=== PATIENT | female | born 1985 | race Caucasian/White ===

== ENCOUNTER → 2023-02-23 | Emergency (ER) | payer OTHER ==
[~2023-02-23] MED LIST: KETOROLAC 30 MG/ML INJ ONE; NACHLORIDE 0.45% 1,000 ML IV ONE
[2023-02-23 11:32] LABS: Absolute Lymphocytes (CBC) 1.8 K/uL (0.7-4.9); Hematocrit 40.1 % (36.0-45.0); Lymphocytes % 32.5 % (15.3-44.8); MCV 87.9 fL (80-100); MPV 7.4 fL (7.6-11.3); Platelets 210 thou/uL (152-406); RBC Red Blood Cell Count 4.56 M/uL (3.86-4.86)
[2023-02-23 11:36] LABS: Specific Gravity 1.017 (1.005-1.030)
[2023-02-23 11:39] LABS: Specific Gravity 1.017 (1.005-1.030); Urine Bacteria None Seen /HPF (<20); Urine Bilirubin NEGATIVE (Negative); Urine Blood Negative (Negative); Urine Clarity Turbid (Clear); Urine Color Light-Yellow (Yellow); Urine Glucose NEGATIVE (Negative); Urine Mucus Slight /HPF (None Seen); Urine Protein NEGATIVE (Negative); Urine RBC <5 /HPF (None Seen); Urine Urobilinogen Normal (Normal)
[2023-02-23 11:49] LABS: Albumin 3.2 g/dL (3.4-5.0); Bilirubin Total 0.3 mg/dL (0.2-1.0); Potassium 3.7 mEq/L (3.5-5.1); Protein, Total 7.2 g/dL (6.4-8.2)
--- NOTE | 2023-02-23 12:28 | RAD REPORT ---
EXAM DESCRIPTION: CT - Abdomen Pelvis Wo Contrast - 02/23/2023 11:53 am CLINICAL HISTORY: Abdominal pain left flank pain COMPARISON: None TECHNIQUE: Computed axial tomography of the abdomen and pelvis was obtained. IV and oral contrast we re not requested. All CT scans are performed using dose optimization technique as appropriate and may include automated exposure control or mA/KV adjustment according to patient size. FINDINGS: The evaluation of solid organs, vessels and bowel is limited secondary to the lack of con trast administration. The liver, spleen, pancreas, adrenals and kidneys appear grossly normal. Cholelithiasis. Gallbladder wall not thickened No adnexal mass. There is no evidence of diverticulitis. Small umbilical hernia IMPRESSION: Cholelithiasis
--- NOTE | 2023-02-23 12:39 | EDPHYS ---
Physician Documentation [facility] Name: August Age: 37 yrs Sex: Female : 1985 Arrival Date: 02/23/2023 Time: 10:33 Bed 14 Private MD: ED Physician Schuyler Lehman HPI: 02/23 10:53 This 37 yrs old Female presents to ER via Ambulatory with complaints of Low Back Pain, sp3 Abdominal Pain, Pain With Urination. 10:53 37-year-old female with no known past medical history no prior history of kidney stones sp3 now presents to the ED with left-sided flank pain, mild dysuria without gross hematuria. Patient is concerned about bladder infection versus kidney stone. Symptoms been going on for 1 to 2 days and pain is worse at the end of urination with spasms. Review of systems negative for fever, headache, URI symptoms, chest pain, shortness of breath, rash, bleeding, or any other signs or symptoms at this time. She denies VP OF TECHNOLOGY symptoms as well.. 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 - Social history:: Smoking status: Patient denies any tobacco usage or history of. ROS: 10:55 Constitutional: Negative for fever, chills, and weight loss, Eyes: Negative for injury, sp3 pain, redness, and discharge, ENT: Negative for injury, pain, and discharge, Neck: Negative for injury, pain, and swelling, Cardiovascular: Negative for chest pain, palpitations, and edema, Respiratory: Negative for shortness of breath, cough, wheezing, and pleuritic chest pain, MS/Extremity: Negative for injury and deformity, Skin: Negative for injury, rash, and discoloration, Neuro: Negative for headache, weakness, numbness, tingling, and seizure, Psych: Negative for depression, anxiety, suicide ideation, homicidal ideation, and hallucinations, Allergy/Immunology: Negative for hives, rash, and allergies, Endocrine: Negative for neck swelling, polydipsia, polyuria, polyphagia, and marked weight changes, Hematologic/Lymphatic: Negative for swollen nodes, abnormal bleeding, and unusual bruising, 10:55 All other systems are negative, Exam: 10:56 Constitutional: This is a well developed, well nourished patient who is awake, alert, sp3 and in no acute distress. Head/Face: Normocephalic, atraumatic. Eyes: Pupils equal round and reactive to light, extra-ocular motions intact. Lids and lashes normal. Conjunctiva and sclera are non-icteric and not injected. Cornea within normal limits. Periorbital areas with no swelling, redness, or edema. ENT: Nares patent. No nasal discharge, no septal abnormalities noted. External auditory canals are clear. Oropharynx with no redness, swelling, or masses, exudates, or evidence of obstruction, uvula midline. Mucous membranes moist. Neck: Trachea midline, no thyromegaly or masses palpated, and no cervical lymphadenopathy. Supple, full range of motion without nuchal rigidity, or vertebral point tenderness. No Meningismus. Chest/axilla: Normal chest wall appearance and motion. Nontender with no deformity. No lesions are appreciated. Cardiovascular: Regular rate and rhythm with a normal S1 and S2. No gallops, murmurs, or rubs. Normal PMI, no JVD. No pulse deficits. Respiratory: Lungs have equal breath sounds bilaterally, clear to auscultation and percussion. No rales, rhonchi or wheezes noted. No increased work of breathing, no retractions or nasal flaring. Skin: Warm, dry with normal turgor. Normal color with no rashes, no lesions, and no evidence of cellulitis. MS/ Extremity: Pulses equal, no cyanosis. Neurovascular intact. Full, normal range of motion. Neuro: Awake and alert, GCS 15, oriented to person, place, time, and situation. Cranial nerves II-XII grossly intact. Motor strength 5/5 in all extremities. Sensory grossly intact. Cerebellar exam normal. Normal gait. Psych: Awake, alert, with orientation to person, place and time. Behavior, mood, and affect are within normal limits. 10:56 Abdomen/GI: Left knee tenderness noted., Vital Signs: 10:44 BP 143 / 90; Pulse 93; Resp 18 S; Temp 98.3(O); Pulse Ox 98% on R/A; Weight 145.15 kg aa5 (R); Height 5 ft. 3 in. (R); 12:34 BP 134 / 69; Pulse 71; Resp 17; Pulse Ox 96% on R/A; kd3 10:44 Body Mass Index 56.68 (145.15 kg, 160.02 cm) aa5 MDM: 10:50 Patient medically screened. sp3 10:56 Data reviewed: vital signs, nurses notes, lab test result(s), radiologic studies. ED sp3 course: 37-year-old female with left-sided flank pain and mild dysuria. Differential diagnosis includes UTI/pyelonephritis spectrum, nephrolithiasis/ureterolithiasis kidney stone spectrum, and musculoskeletal pain. I am not highly suspicious for vascular pathology including aortic, GI pathology, or VP OF TECHNOLOGY pathology at this time. Workup will include laboratory values, urine analysis and CT scan of the abdomen pelvis noncontrast and neck kidney stone protocol. Disposition pending workup and patient course. Patient will receive ketorolac 30 mg IV and normal saline 1 L IV for symptomatic control.. 12:38 ED course: Workup is negative. We will safely discharged home at this time with likely sp3 MSK related symptoms.. 02/23 10:50 Order name: UAM; Complete Time: 11:55 sp3 02/23 10:50 Order name: Test, Urine; Complete Time: 11:55 sp3 02/23 10:53 Order name: CBC with Diff; Complete Time: 11:55 sp3 02/23 10:53 Order name: CMP; Complete Time: 11:55 sp3 02/23 10:53 Order name: Lipase; Complete Time: 11:55 sp3 02/23 10:53 Order name: CT Abd/Pelvis - Without Contrast; Complete Time: 12:30 sp3 02/23 10:53 Order name: IV Saline Lock; Complete Time: 11:25 sp3 02/23 10:53 Order name: Labs collected and sent; Complete Time: 11:24 sp3 Administered Medications: 11:24 Drug: TORadol - Ketorolac IVP 30 mg IVP once Route: IVP; Site: right antecubital; kd3 12:53 Follow up: Response: No adverse reaction; Pain is decreased kd3 11:24 Drug: NS IV 0.45 % 1000 ml IV at bolus once Route: IV; Rate: bolus; Site: right kd3 antecubital; 12:53 Follow up: IV Status: Completed infusion; IV Intake: 200ml kd3 Disposition Summary: 02/23/23 12:39 Discharge Ordered Notes: Location: Home sp3 Condition: Stable sp3 Diagnosis - Musculoskeletal back pain, flank pain sp3 Followup: sp3 - With: Private Physician - When: Upon discharge from the Emergency Department - Reason: Continuance of care Discharge Instructions: - Discharge Summary Sheet sp3 - Flank Pain, Adult sp3 Forms: - Medication Reconciliation Form sp3 - Thank You Letter sp3 - Antibiotic Education sp3 - Prescription Opioid Use sp3 - Patient Portal Instructions sp3 - Leadership Thank You Letter sp3 - Work release form kd3 Signatures: Dispatcher [employer] EDRachel Salas RN RN aa5 Schuyler Lehman MD MD sp3 Emily Santos RN RN kd3 Corrections: (The following items were deleted from the chart) 10:45 10:44 Allergies: No Known Allergies; rere aa5
--- NOTE | 2023-02-23 12:39 | ER ---
Nurse's Notes [facility] [place] Name: August Angelica Age: 37 yrs Sex: Female : 1985 Arrival Date: 02/23/2023 Time: 10:33 Bed 14 Private MD: Diagnosis: Musculoskeletal back pain, flank pain Presentation: 02/23 10:44 Chief complaint: Patient states: left low back pain since yesterday. Pt denies burning aa5 with urination but reports urinary frequency. Coronavirus screen: At this time, the client does not indicate any symptoms associated with coronavirus-19. Ebola Screen: Patient denies travel to an Ebola-affected area in the 21 days before illness onset. Initial Sepsis Screen: Does the patient meet any 2 criteria? No. Patient's initial sepsis screen is negative. Does the patient have a suspected source of infection? No. Patient's initial sepsis screen is negative. Risk Assessment: Do you want to hurt yourself or someone else? Patient reports no desire to harm self or others. Onset of symptoms was February 2023. 10:44 Method Of Arrival: Ambulatory aa5 10:44 Acuity: RAE 3 aa5 Triage Assessment: 12:34 General: Appears in no apparent distress. Behavior is calm, cooperative. Pain: kd3 Complains of pain in back. GI: Abdomen is non-distended. 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 - Social history:: Smoking status: Patient denies any tobacco usage or history of. Screenin:34 [facility] ED Fall Risk Assessment (Adult) History of falling in the last 3 months, kd3 including since admission No falls in past 3 months (0 pts) Confusion or Disorientation No (0 pts) Intoxicated or Sedated No (0 pts) Impaired Gait No (0 pts) Mobility Assist Device Used No (0 pt) Altered Elimination No (0 pt) Score/Fall Risk Level 0 - 2 = Low Risk Oriented to surroundings. Abuse screen: Denies threats or abuse. Denies injuries from another. Nutritional screening: No deficits noted. Tuberculosis screening: No symptoms or risk factors identified. Assessment: 11:25 General: Pt seen sitting in the stretcher, respirations are even and unlabored, skin is kd3 warm and dry and normal in color, pt is alert and oriented x 4. Pt encouraged to attempt to give a urine sample. Pt was independently ambulatory to the restroom, gait is steady. Urine sample collected via clean catch, Iv access obtained in the right A/C, blood work collected and sent to the lab. Fluids are running. Pt reports having her tubes tied and denies possibility of . Pain medications are administered. Pt placed on continuous monitoring, side rail up x 1, call light in reach. No new requests at this time. . 12:35 GI: Bowel sounds present X 4 quads. Abd is soft X 4 quads. kd3 Vital Signs: 10:44 BP 143 / 90; Pulse 93; Resp 18 S; Temp 98.3(O); Pulse Ox 98% on R/A; Weight 145.15 kg aa5 (R); Height 5 ft. 3 in. (R); 12:34 BP 134 / 69; Pulse 71; Resp 17; Pulse Ox 96% on R/A; kd3 10:44 Body Mass Index 56.68 (145.15 kg, 160.02 cm) aa5 ED Course: 10:38 Patient arrived in ED. mg5 10:39 Schuyler Lehman MD is Attending Physician. sp3 10:44 Triage completed. aa5 10:44 Arm band placed on. aa5 11:24 Emily Santos, RN is Primary Nurse. kd3 11:24 CBC with Diff Sent. kd3 11:24 CMP Sent. kd3 11:24 Lipase Sent. kd3 11:24 Test, Urine Sent. kd3 11:24 UAM Sent. kd3 11:25 Inserted saline lock: 20 gauge in right antecubital area, using aseptic technique. kd3 Blood collected. 11:55 CT Abd/Pelvis - Without Contrast In Process Unspecified. EDMS 12:35 Patient has correct armband on for positive identification. Provided Education on: kd3 fluids . 12:35 No provider procedures requiring assistance completed. kd3 12:52 IV discontinued, intact, bleeding controlled, No redness/swelling at site. Pressure kd3 dressing applied. Administered Medications: 11:24 Drug: TORadol - Ketorolac IVP 30 mg IVP once Route: IVP; Site: right antecubital; kd3 12:53 Follow up: Response: No adverse reaction; Pain is decreased kd3 11:24 Drug: NS IV 0.45 % 1000 ml IV at bolus once Route: IV; Rate: bolus; Site: right kd3 antecubital; 12:53 Follow up: IV Status: Completed infusion; IV Intake: 200ml kd3 Medication: 12:35 VIS not applicable for this client. kd3 Intake: 12:53 IV: 200ml; Total: 200ml. kd3 Outcome: 12:39 Discharge ordered by . sp3 12:52 Discharged to home ambulatory, kd3 12:52 Condition: stable 12:52 Discharge instructions given to patient, Instructed on discharge instructions, follow up and referral plans. Demonstrated understanding of instructions, follow-up care, 12:53 Patient left the ED. kd3 Signatures: Dispatcher [employer] EDVT Rachel Xie RN RN aa5 Schuyler Lehman MD MD sp3 Emily Santos RN RN kd3 Lawanda Portillo mg5 Corrections: (The following items were deleted from the chart) 10:45 10:44 Allergies: No Known Allergies; aa5 aa5
[2023-02-23 15:19] VITALS: BP 134/69; TEMP 98.3; O2SAT 96
== END ==
LOC: ER 10:33
DX: R10.32 Left lower quadrant pain (principal); M79.18 Myalgia, other site; M54.50 Low back pain, unspecified; Z88.1 Allergy status to other antibiotic agents; Z91.048 Other nonmedicinal substance allergy status
CPT/HCPCS: 36415; 74176; 80053; 81001; 81025; 83690; 85025; 96361; 96374; 99284

== ENCOUNTER 2024-02-04 07:57 | Emergency (ER) | payer OTHER ==
[2024-02-04 08:33] LABS: Absolute Lymphocytes (CBC) 0.9 K/uL (0.7-4.9); Absolute Monocytes 0.3 K/uL (0.1-1.3); Absolute Neutrophil 5.2 K/uL (1.8-8.0); Basophils % 0.3 % (0-1.3); Eosinophils % 0.3 % (0-4.4); Hematocrit 43.2 % (36.0-45.0); Hemoglobin 14.5 g/dL (12.0-15.0); Lymphocytes % 14.3 % (15.3-44.8); MCH 29.9 pg (27.0-35.0); MCHC 33.6 g/dL (32.0-36.0); MCV 89.1 fL (80-100); MPV 7.6 fL (7.6-11.3); Monocytes % 4.9 % (3.3-12.3); Neutrophils % 80.2 % (41.7-73.7); Nucleated Red Blood Cells % 0.1 % (0-0); Platelets 195 thou/uL (152-406); RBC Red Blood Cell Count 4.85 M/uL (3.86-4.86); Red Cell Distribution Width 14.4 % (12.1-15.2)
--- NOTE | 2024-02-04 08:46 | RAD REPORT ---
EXAM: Right upper quadrant ultrasound. CLINICAL HISTORY: ABD PAIN COMPARISON: None. FINDINGS: Gallbladder: Cholelithiasis. Bile ducts: No intrahepatic or extrahepatic biliary dilatation. Common bile duct measures 4 mm. Limited imaging of the liver shows no concerning finding. IMPRESSION: Cholelithiasis.
[2024-02-04 08:50] LABS: Albumin 3.5 g/dL (3.4-5.0); Albumin/Globulin Ratio 0.9 (1.1-1.8); Anion Gap 7.6 mEq/L (5.0-15.0); Bilirubin Total 0.7 mg/dL (0.2-1.0); Potassium 3.6 mEq/L (3.5-5.1); Protein, Total 7.5 g/dL (6.4-8.2)
[2024-02-04] MEDS ORDERED: FAMOTIDINE 20 MG/2 ML VIAL IV ONE (08:55)
[2024-02-04] MEDS ORDERED: NA CHLORIDE 0.9% 1,000 ML ONE (08:55)
[2024-02-04] MEDS ORDERED: ONDANSETRON 4 MG/2 ML VIAL ONE (08:55)
[2024-02-04 09:10] LABS: Specific Gravity 1.028 (1.005-1.030)
[2024-02-04 09:14] LABS: Specific Gravity 1.028 (1.005-1.030); Sqamous Epithelial <5 /HPF (None Seen); Urine Bacteria None Seen /HPF (<20); Urine Bilirubin NEGATIVE (Negative); Urine Blood Negative (Negative); Urine Clarity Turbid (Clear); Urine Color Yellow (Yellow); Urine Culture Reflex Order NOT NEEDED; Urine Glucose NEGATIVE (Negative); Urine Ketones NEGATIVE (Negative); Urine Microscopic Reflex YN ORDER UMIC; Urine Mucus 1+ /HPF (None Seen); Urine Nitrite NEGATIVE (Negative); Urine Protein TRACE (Negative); Urine RBC <5 /HPF (None Seen); Urine Urobilinogen Normal (Normal); Urine WBC <5 /HPF (<5)
--- NOTE | 2024-02-04 09:48 | RAD REPORT ---
EXAMINATION: CT ABDOMEN AND PELVIS WITHOUT CONTRAST CLINICAL INDICATION: ABD PAIN TECHNIQUE: CT abdomen and pelvis was performed, without IV contrast, as per department protocol. Axia l, sagittal and coronal reconstructions were obtained. One or more of the following dose reduction techniques were used: Automated exposure control, adjustment of the mA and kV according to the patien t size, and iterative reconstruction. Unless otherwise specified, incidental findings do not require dedicated imaging follow-up. COMPARISON: 02/23/2023 FINDINGS: The lack of intravenous contrast limits the sensitivity of this exam for evaluation of solid visceral organs, vascular structures, and retroperitoneum. LOWER CHEST: The visualized lung bases are clear. LIVER:Normal in size and contour. No focal lesion. Cholelithiasis. SPLEEN: Normal size. No focal lesion. PANCREAS: No mass, ductal dilation, or irasema-pancreatic fluid. ADRENALS: Normal; no mass. KIDNEYS AND URETERS: Normal size and contour. No hydronephrosis. URINARY BLADDER: Normal contour. GASTROINTESTINAL TRACT: No evidence of bowel obstruction, significant free fluid, free air or abscess . APPENDIX: Appendix not visualized, but no inflammatory changes in region of appendix. LYMPH NODES: No lymphadenopathy. MUSCULOSKELETAL: No acute or suspicious osseous abnormality. ADDITIONAL FINDINGS: None. IMPRESSION: No acute or concerning abnormalities in the abdomen or pelvis, with evaluation limited by lack of IV contrast. Cholelithiasis.
--- NOTE | 2024-02-04 10:34 | ER ---
Nurse's Notes [facility] [place] Name: Josi Dominguez Age: 38 yrs Sex: Female : 1985 Arrival Date: 02/04/2024 Time: 07:57 Bed 14 Private MD: Diagnosis: Other cholelithiasis without obstruction;Epigastric abdominal tenderness Presentation: 02/03 08:09 Chief complaint: Patient states: woke up with upper abd pain , under her ribs , + iw vomiting. Coronavirus screen: At this time, the client does not indicate any symptoms associated with coronavirus-19. Ebola Screen: No symptoms or risks identified at this time. Initial Sepsis Screen: Does the patient meet any 2 criteria? No. Patient's initial sepsis screen is negative. Does the patient have a suspected source of infection? No. Patient's initial sepsis screen is negative. Risk Assessment: Do you want to hurt yourself or someone else? Patient reports no desire to harm self or others. Onset of symptoms was February 04, 2024. 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 - Infectious Disease History:: Denies. - Social history:: Smoking status: Patient denies any tobacco usage or history of. - Family history:: not pertinent. Screenin:10 [facility] ED Fall Risk Assessment (Adult) History of falling in the last 3 months, ap3 including since admission No falls in past 3 months (0 pts) Confusion or Disorientation No (0 pts) Intoxicated or Sedated No (0 pts) Impaired Gait No (0 pts) Mobility Assist Device Used No (0 pt) Altered Elimination No (0 pt) Score/Fall Risk Level 0 - 2 = Low Risk Oriented to surroundings, Maintained a safe environment, Educated pt \T\ family on fall prevention, incl call for assistance when getting out of bed, Assessed \T\ reinforced patient's understanding of fall precautions, Hourly rounding (assess needs \T\ fall precautionary measures) done, Used ambulatory aids as needed (educated on \T\ assisted with), Used gait belt as appropriate. Abuse screen: Denies threats or abuse. Nutritional screening: No deficits noted. Tuberculosis screening: No symptoms or risk factors identified. Assessment: 10:10 General: Appears in no apparent distress. Behavior is calm, cooperative, appropriate ap3 for age. Pain: Complains of pain in abdomen Pain began this morning. Neuro: Level of Consciousness is awake, alert, obeys commands, Oriented to person, place, time, situation, Appropriate for age. Cardiovascular: Patient's skin is warm and dry. Respiratory: Airway is patent Respiratory effort is even, unlabored, Respiratory pattern is regular, symmetrical. GI: Reports lower abdominal pain, upper abdominal pain. Vital Signs: 08:09 BP 146 / 86; Pulse 88; Resp 16; Temp 97.1; Pulse Ox 98% on R/A; Weight 128.82 kg; iw Height 5 ft. 2 in. ; Pain 7/10; 10:09 BP 126 / 58; Pulse 68; Resp 18; Pulse Ox 98% on R/A; ap3 08:09 Body Mass Index 51.94 (128.82 kg, 157.48 cm) iw 08:09 Pain Scale: Adult iw ED Course: 07:59 Patient arrived in ED. ra3 08:00 Jeremiah Fabian MD is Attending Physician. kaley 08:10 Triage completed. iw 08:10 Arm band placed on. iw 08:25 CBC with Diff Sent. bc6 08:25 CMP Sent. bc6 08:25 Lipase Sent. bc6 08:25 Initial lab(s) drawn, by va, sent to lab. Inserted saline lock: 20 gauge in right bc6 antecubital area, using aseptic technique. Blood collected. Flushed with 10 mL NS. 08:41 Ines Gómez, KILLIAN is Primary Nurse. ap3 08:42 Abdomen Limited US In Process Unspecified. EDMS 09:43 Abdomen In Process Unspecified. EDMS 10:11 No provider procedures requiring assistance completed. ap3 10:33 Leonard Arreola MD is Referral Physician. kaley 11:08 Provided Education on: discharge instructions. ap3 11:08 Patient has correct armband on for positive identification. ap3 11:08 IV discontinued, intact, bleeding controlled, No redness/swelling at site. Pressure ap3 dressing applied. Administered Medications: 09:06 Drug: Famotidine IVP 20 mg IVP once; dilute with 10 mL 0.9% NaCl; give over 2 minutes bp Route: IVP; Site: right antecubital; 11:08 Follow up: Response: No adverse reaction ap3 09:06 Drug: Ondansetron IVP 4 mg IVP once; over 2 minutes Route: IVP; Site: right antecubital;bp 11:09 Follow up: Response: No adverse reaction; Nausea is decreased ap3 09:06 Drug: NS 0.9% IV 1000 ml IV at 1 bolus Per protocol; to be given as a bolus over 60 bp minutes Route: IV; Rate: 1 bolus; Site: right antecubital; 11:08 Follow up: IV Status: Completed infusion; IV Intake: 1000ml ap3 Medication: 10:11 VIS not applicable for this client. ap3 Intake: 11:08 IV: 1000ml; Total: 1000ml. ap3 Outcome: 10:34 Discharge ordered by MD. roche 11:07 Discharged to home ambulatory, with family, ap3 11:07 Condition: good 11:07 Discharge instructions given to patient, Instructed on discharge instructions, follow up and referral plans. medication usage, Demonstrated understanding of instructions, follow-up care, medications, Prescriptions given X 3, 11:09 Patient left the ED. ap3 Signatures: Dispatcher [employer] EDNC Jeremiah Fabian MD MD cha Williams, Irene, RN RN iw Peltier, Brian, RN RN bp Prokisch, Amanda, RN RN ap3 Latisha Castro Ruby ra3
--- NOTE | 2024-02-04 10:35 | EDPHYS ---
Physician Documentation [facility] [place] Name: Augustal Age: 38 yrs Sex: Female : 1985 Arrival Date: 02/04/2024 Time: 07:57 Bed 14 Private MD: JAMA Physician Jeremiah Fabian HPI: 02/03 10:29 This 38 yrs old Female presents to ER via Ambulatory with complaints of kaley stomach pain. 10:29 The patient presents with abdominal pain in the epigastric area, in the upper abdomen. kaley Onset: The symptoms/episode began/occurred just prior to arrival, this morning. The symptoms do not radiate. Associated signs and symptoms: none. Modifying factors: The symptoms are alleviated by nothing, the symptoms are aggravated by food. Severity of pain: At its worst the pain was moderate in the emergency department the pain has improved moderately. The patient has experienced similar episodes in the past, a few times. 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 - Infectious Disease History:: Denies. - Social history:: Smoking status: Patient denies any tobacco usage or history of. - Family history:: not pertinent. ROS: 10:29 Constitutional: Negative for fever, chills, and weight loss, Eyes: Negative for injury, kaley pain, redness, and discharge, ENT: Negative for injury, pain, and discharge, Neck: Negative for injury, pain, and swelling, Cardiovascular: Negative for chest pain, palpitations, and edema, Respiratory: Negative for shortness of breath, cough, wheezing, and pleuritic chest pain, Back: Negative for injury and pain, : Negative for injury, bleeding, discharge, and swelling, MS/Extremity: Negative for injury and deformity, Skin: Negative for injury, rash, and discoloration, Neuro: Negative for headache, weakness, numbness, tingling, and seizure, Psych: Negative for depression, anxiety, suicide ideation, homicidal ideation, and hallucinations, Allergy/Immunology: Negative for hives, rash, and allergies, Endocrine: Negative for neck swelling, polydipsia, polyuria, polyphagia, and marked weight changes, Hematologic/Lymphatic: Negative for swollen nodes, abnormal bleeding, and unusual bruising, 10:29 Abdomen/GI: Positive for abdominal pain, abdominal cramps, of the epigastric area and right upper quadrant, Exam: 10:29 Constitutional: This is a well developed, well nourished patient who is awake, alert, kaley and in no acute distress. Head/Face: Normocephalic, atraumatic. Eyes: Pupils equal round and reactive to light, extra-ocular motions intact. Lids and lashes normal. Conjunctiva and sclera are non-icteric and not injected. Cornea within normal limits. Periorbital areas with no swelling, redness, or edema. ENT: Nares patent. No nasal discharge, no septal abnormalities noted. Tympanic membranes are normal and external auditory canals are clear. Oropharynx with no redness, swelling, or masses, exudates, or evidence of obstruction, uvula midline. Mucous membranes moist. Neck: Trachea midline, no thyromegaly or masses palpated, and no cervical lymphadenopathy. Supple, full range of motion without nuchal rigidity, or vertebral point tenderness. No Meningismus. Chest/axilla: Normal chest wall appearance and motion. Nontender with no deformity. No lesions are appreciated. Cardiovascular: Regular rate and rhythm with a normal S1 and S2. No gallops, murmurs, or rubs. Normal PMI, no JVD. No pulse deficits. Respiratory: Lungs have equal breath sounds bilaterally, clear to auscultation and percussion. No rales, rhonchi or wheezes noted. No increased work of breathing, no retractions or nasal flaring. Back: No spinal tenderness. No costovertebral tenderness. Full range of motion. Skin: Warm, dry with normal turgor. Normal color with no rashes, no lesions, and no evidence of cellulitis. MS/ Extremity: Pulses equal, no cyanosis. Neurovascular intact. Full, normal range of motion., bilateral aka Neuro: Awake and alert, GCS 15, oriented to person, place, time, and situation. Cranial nerves II-XII grossly intact. Motor strength 5/5 in all extremities. Sensory grossly intact. Cerebellar exam normal. Normal gait. Psych: Awake, alert, with orientation to person, place and time. Behavior, mood, and affect are within normal limits. 10:29 Abdomen/GI: Inspection: abdomen appears normal, Bowel sounds: normal, Palpation: mild abdominal tenderness, in the epigastric area and right upper quadrant, Liver: no appreciated palpable abnormalities, Hernia: not appreciated, Vital Signs: 08:09 BP 146 / 86; Pulse 88; Resp 16; Temp 97.1; Pulse Ox 98% on R/A; Weight 128.82 kg; iw Height 5 ft. 2 in. ; Pain 7/10; 10:09 BP 126 / 58; Pulse 68; Resp 18; Pulse Ox 98% on R/A; ap3 08:09 Body Mass Index 51.94 (128.82 kg, 157.48 cm) iw 08:09 Pain Scale: Adult iw MDM: 08:00 Medical Screening Exam initiated kaley 10:31 Differential diagnosis: cholecystitis, Cholelithiasis, diverticulitis, gastritis, kaley Hepatitis, non-specific abd pain, pancreatitis, Peptic Ulcer Disease, Ureterolithiasis, urinary tract infection. Data reviewed: vital signs, nurses notes, lab test result(s), radiologic studies, CT scan, ultrasound. Consideration of Admission/Observation Escalation of care including admission/observation considered. I considered the following discharge prescriptions or medication management in the emergency department Medications were administered in the Emergency Department. See MAR. Independent interpretation of the following test(s) in the Emergency Department Radiology Department Ultrasound: My interpretation is gb usg, ct ab/pel. Test considered but Not performed: MRI: no mrcp. Care significantly affected by the following chronic conditions: Obesity, none. 02/03 08:01 Order name: CBC with Diff; Complete Time: 09: [facility] 02/03 08:01 Order name: CMP; Complete Time: 09: kaley 02/03 08:01 Order name: Lipase; Complete Time: 09: [facility] 02/03 08:01 Order name: Test, Urine; Complete Time: 09:41 kaley 02/03 08:01 Order name: Urinalysis w/ reflexes; Complete Time: 09:41 kaley 02/03 08:01 Order name: Abdomen Limited US; Complete Time: 09:01 [facility] 02/03 09:27 Order name: Abdomen ; Complete Time: 09:49 EDMS 02/03 08:01 Order name: IV Saline Lock; Complete Time: 08:25 [facility] 02/03 08:01 Order name: Labs collected and sent; Complete Time: 08:25 [facility] Administered Medications: 09:06 Drug: Famotidine IVP 20 mg IVP once; dilute with 10 mL 0.9% NaCl; give over 2 minutes bp Route: IVP; Site: right antecubital; 11:08 Follow up: Response: No adverse reaction ap3 09:06 Drug: Ondansetron IVP 4 mg IVP once; over 2 minutes Route: IVP; Site: right antecubital;bp 11:09 Follow up: Response: No adverse reaction; Nausea is decreased ap3 09:06 Drug: NS 0.9% IV 1000 ml IV at 1 bolus Per protocol; to be given as a bolus over 60 bp minutes Route: IV; Rate: 1 bolus; Site: right antecubital; 11:08 Follow up: IV Status: Completed infusion; IV Intake: 1000ml ap3 Disposition Summary: 02/04/24 10:34 Discharge Ordered Notes: Location: Home [facility] Problem: new kaley Symptoms: have improved kaley Condition: Stable kaley Diagnosis - Other cholelithiasis without obstruction kaley - Epigastric abdominal tenderness kaley Followup: kaley - With: Private Physician - When: 2 - 3 days - Reason: Recheck today's complaints, Continuance of care, Re-evaluation by your physician Followup: kaley - With: Leonard Arreola MD - When: 2 - 3 days - Reason: Recheck today's complaints, Re-evaluation by your physician Discharge Instructions: - Discharge Summary Sheet [facility] - Cholelithiasis kaley - Cholelithiasis, [id number] [facility] - Gallbladder Eating Plan [facility] Forms: - Medication Reconciliation Form [facility] - Antibiotic Education kaley - Prescription Opioid Use [facility] - Patient Portal Instructions [facility] - Leadership Thank You Letter [facility] Prescriptions: - ondansetron 4 mg Oral Tablet,disintegrating - take 1 tablet ORAL route every 8 hours for 5 days prn nausea; 20 tablet; kaley Refills: 0, Product Selection Permitted - Pepcid 20 mg Oral tablet - take 1 tablet ORAL route every 12 hours for 21 days; 42 tablet; Refills: 0, kaley Product Selection Permitted - dicyclomine 20 mg Oral tablet - take 1 tablet ORAL route 4 times per day; 28 tablet; Refills: 0, Product [facility] Selection Permitted Signatures: Dispatcher [employer] EDMS Jeremiah Fabian MD MD cha Williams, Irene, RN RN Hardy Motley, KILLIAN RN Ines Oleary RN ap3 Corrections: (The following items were deleted from the chart) :27 08:01 Abdomen Pelvis W [id number] ordered. EDMS EDMS
[2024-02-04 11:33] VITALS: TEMP 97.1; O2SAT 98
[2024-02-04 11:34] VITALS: BP 126/58
== END 2024-02-04 11:09 | disposition home or self-care (01) ==
LOC: ER 07:57
DX: K80.80 Other cholelithiasis without obstruction (principal)
CPT/HCPCS: 96361; 85025; 81001; 36415; 81025; 83690; 80053; 74176; 76705; 96375; 96374; 99284; J2405; J7030

== ENCOUNTER 2024-02-23 06:16 | Day surgery (SDC) | payer OTHER ==
[2024-02-23] MEDS: Ringers Lactate 1,000 ML IV ONE (06:48)
[2024-02-23] MEDS ORDERED: LIDOCAINE 2% MPF 5 ML VIAL ONE (06:59)
[2024-02-23] MEDS ORDERED: MIDAZOLAM HCL 2 MG/2 ML INJ ONE (07:00)
[2024-02-23] MEDS ORDERED: propofoL 200 MG/20 ML VIAL IV ONE (07:00)
[2024-02-23] MEDS ORDERED: ONDANSETRON 4 MG/2 ML VIAL ONE (07:00)
[2024-02-23] MEDS ORDERED: ROCURONIUM 50 MG/5 ML VIAL IV ONE (07:00)
[2024-02-23] MEDS ORDERED: FENTANYL CITR 100 MCG/2 ML ONE ×2 (07:00→07:58)
[2024-02-23] MEDS: CEFOXITIN SODIUM 1 GM/VIAL ONE (07:03)
[2024-02-23] MEDS ORDERED: FAMOTIDINE 20 MG/2 ML VIAL IV ONE (07:12)
[2024-02-23] MEDS ORDERED: dexAMETHasone 10 MG/ML VIAL ONE (07:52)
[2024-02-23] MEDS ORDERED: KETOROLAC 30 MG/ML INJ ONE (08:15)
[2024-02-23] MEDS ORDERED: NEOSTIGMINE 1 MG/ML -10 ML VIAL ONE (08:21)
[2024-02-23] MEDS ORDERED: GLYCOPYRROLATE 0.2 MG/ML SYR ONE (08:21)
[2024-02-23] MEDS: Mastisol Adhesive Liq ONE (08:33)
--- NOTE | 2024-02-23 08:40 | P.OP ---
Date of Service: 02/23/24 Preop diagnosis: Chronic cholecystitis and cholelithiasis Postop diagnosis: Same Procedure performed: Laparoscopic cholecystectomy Surgeon: Leonard Arreola MD Filling Station Equipment Mechanic: Yi JONES Estimated blood loss: Minimal Specimen: Gallbladder Findings: As above Anesthesia: General Complications: None Drains: None Fluids and blood products: Nonapplicable Disposition: Recovery room Operative note: Patient brought to the OR and placed in supine position. General anesthesia began. Patient prepped and draped in usual sterile fashion. Marcaine 0.5% infiltrated locally. 15 blade used to make a 1.5 cm infraumbilical midline incision. Subcutaneous tissue divided and the controlled cautery. Fascia identified and divided. #1 Vicryl stay suture placed. Peritoneal cavity entered with sharp and blunt dissection. 12 mm trocar placed into the peritoneal cavity under direct vision. Pneumoperitoneum established. Three 5 mm trocars placed under direct vision. 1 trocar placed in the epigastric region just to the right of midline. 2 trocars placed in the right subcostal region. Laparoscopy revealed chronic inflammation of the gallbladder. There were few omental adhesions which were taken down with LigaSure. The fundus identified and retracted superiorly. Infundibulum was identified and retracted inferolaterally. Cystic duct and cystic artery clearly identified with blunt dissection. Clips placed and both structures divided. Cautery used to remove the gallbladder from the liver bed. Bleeding in the liver bed controlled with cautery. Gallbladder retrieved through the umbilicus via Endo Catch bag. Right upper quadrant irrigated and effluent clear. No evidence of bleeding or bile leak appreciated. All trocars removed under direct vision. Stay sutures tied to each other to reapproximate the fascial defect. Subcutaneous wounds irrigated and bleeding controlled cautery. 3-0 chromic used to approximate subcutaneous tissue and close skin. Sterile dressing applied. Patient awakened and taken to recovery room in good general condition. CC:
[2024-02-23] MEDS ORDERED: HYDROCODONE/APAP 7.5/325 MG TAB PO PRN (08:42)
[2024-02-23 09:34] VITALS: BP 125/74; TEMP 97.8; O2SAT 97
[2024-02-23] MEDS ORDERED: SUGAMMADEX SODIUM 200 MG/2 ML VIAL IV ONE (10:00)
== END 2024-02-23 10:50 | disposition home or self-care (01) ==
LOC: OR 06:16
PROVIDERS: ATTEND Surgery
PROC: 0FT44ZZ Resection of Gallbladder, Percutaneous Endoscopic Approach (ICD-10-PCS; principal; 2024-02-23 07:30)
DX: K80.10 Calculus of gallbladder with chronic cholecystitis without obstruction (principal)
CPT/HCPCS: 36415; 84703; 88304; 47562; J2704; J2710; J2003; J2250; J3010 ×2; J1100; J0694; J2405; J7120